=== PATIENT | male | born 1945 | race Caucasian/White ===

== ENCOUNTER 2016-11-11 20:30 | Inpatient (IN) ==
[2016-11-11] MEDS ORDERED: DUONEB (A & A) INH ONE (21:11)
--- NOTE | 2016-11-11 21:28 | PROVIDER DOCUMENTATION ---
HPI-Respiratory General - General Chief Complaint: Shortness of Breath Stated Complaint: SOB Time Seen by Provider: 11/11/16 21:00 Source: patient, family Allergies/Adverse Reactions: Patient Allergies Allergy/AdvReac Type Severity Reaction Status Date / Time Beta-Blockers Allergy Unknown Unknown Verified 11/11/16 21:15 (Beta-Adrenergic Bloc Home Medications: Home Medication List Medication Instructions Recorded Confirmed Last Taken Type PRAVAstatin [Pravachol] 40 mg PO QAM 12/23/13 11/11/16 11/11/16 07:00 History Citalopram [Celexa] 40 mg PO QAM 09/11/14 11/11/16 11/11/16 07:00 History Gabapentin 800 mg PO QAM 09/11/14 11/11/16 11/11/16 07:00 History Albuterol Sulfate Inhaler 4 puff INH Q6H PRN PRN #1 inhaler 03/06/15 11/11/16 19:35 Rx [Ventolin Hfa] Meloxicam 15 mg PO QAM 03/06/15 11/11/16 11/11/16 07:00 History Arformoterol Neb [Brovana Neb] 15 microgm INH RTQ12H 04/04/16 11/11/16 11/11/16 08:00 History Gabapentin 800 mg PO QHS 04/04/16 11/11/16 11/10/16 20:00 History Furosemide [Furosemide] 20 mg PO 11/11/16 11/11/16 08:00 History Metoprolol Tartrate [Metoprolol 50 mg PO DAILY 11/11/16 11/11/16 11/11/16 08:00 History Tartrate] - History of Present Illness-Resp Nature of Presenting Problem: Patient is a pleasant 71 yrs old male with hx of COPD, HTN and smoking has come with worsening of the shortness of chronic shortness of breath . He states that he has been having always shortness of breath going on , which has been now severe in the last couple of days. Particularly since yesterday there is more shortness of breath going on . He is spitting out phlegm . Having some cough going on as well.No chest pain , no N/V, no abd pain , No constipation . Overall feels weak and tired. No numbness in any part of the legs or arms. Quality of Pain: reports: none Severity in ED: reports: moderate Onset/Duration: reports: gradual Timing: reports: still present Exposure: reports: unknown cause Cough Quality/Degree: reports: productive cough, sputum Current Respiratory Medication Therapy: Initiated none Modifying Factors: improves with: nothing Similar Symptoms Previously?: Yes Recently seen or treated by another doctor?: No Review of Systems - Adult - REVIEW OF SYSTEMS - ADULT Constitutional: reports: no symptoms reported Eyes: reports: no symptoms reported Ears, Nose, Mouth & Throat: reports: no symptoms reported Cardiovascular: reports: no symptoms reported Respiratory: reports: see HPI Gastrointestinal: reports: no symptoms reported Genitourinary: reports: no symptoms reported Musculoskeletal: reports: no symptoms reported Integumentary: reports: no symptoms reported Neurological: reports: no symptoms reported Psychiatric: reports: no symptoms reported Endocrine: reports: no symptoms reported Hematologic/Lymphatic: reports: no symptoms reported Allergic/Immunologic: reports: no symptoms reported Past History - Adult - PAST MEDICAL HISTORY-ADULT Review of Records: reports: Old Records Reviewed Major Childhood Illnesses: reports: denies history Cardiovascular: reports: HTN Respiratory: reports: asthma, COPD Gastrointestinal: reports: denies history Genitourinary: reports: denies history Musculoskeletal: reports: denies history Neurological: reports: denies history Endocrine/Immune: reports: denies history Other Conditions: reports: denies history - PRIOR SURGERIES/PROCEDURES Surgical/Procedure History: reports: joint replacement (right knee) - IMMUNIZATION STATUS Childhood Immunizations: See Nurse Assessment Flu Vaccine: See Nurse Assessment - FAMILY HISTORY Family History: reviewed, not pertinent Physical Exam-General - PHYSICAL EXAM-ADULT Initial Vital Signs Reviewed: Yes - CONSTITUTIONAL General Appearance: alert, moderate distress, obese, other (Looks tired) - EYES Eyes: PERRL/EOMI - HEAD, EARS, NOSE, MOUTH & THROAT HENMT: normocephalic/atraumatic - NECK Neck: non-tender - RESPIRATORY Respiratory: chest non-tender, decreased breath sounds, wheezing - CARDIOVASCULAR Cardiovascular: regular rate, rhythm, no edema, no gallop - GASTROINTESTINAL (ABDOMEN) Abdominal Exam: non tender, soft, no organomegaly, no pulsatile mass - LYMPHATIC Lymphatic: no adenopathy - MUSCULOSKELETAL Extremity: normal range of motion, no pedal edema, no calf tenderness - SKIN Integumentary: normal color, normal turgor - NEUROLOGIC Neurologic: vp public relations II-XII nml as tested, no motor/sensory deficits - PSYCHIATRIC Psych/Mental Status: normal mood/affect, normal thought content, oriented x 3 Progress - PLAN OF CARE/RESULTS Progress/Plan/Lab Results: Vital Signs - 8 hr 11/11/16 20:49 11/11/16 21:55 11/11/16 23:37 Temperature 98.2 F Pulse Rate 75 75 73 Respiratory Rate 24 18 20 Blood Pressure 149/69 151/79 O2 Sat by Pulse Oximetry 97 99 Laboratory Results - last 24 hr 11/11/16 11/11/16 11/11/16 21:08 21:08 21:08 WBC 10.18 RBC 4.58 L Hgb 14.4 Hct 42.8 MCV 93.4 MCH 31.4 H MCHC 33.6 RDW Std Deviation 13.9 Plt Count 265 MPV 10.9 H Immature Gran % (Auto) 0.2 Neut % (Auto) 59.4 Lymph % (Auto) 26.6 [place] % (Auto) 9.9 H Eos % (Auto) 3.7 Baso % (Auto) 0.2 Immature Gran # (Auto) 0.02 Neut # (Auto) 6.04 Lymph # (Auto) 2.71 [place] # (Auto) 1.01 H Eos # (Auto) 0.38 Baso # (Auto) 0.02 PT INR PTT (Actin FS) D-Dimer 0.27 Sodium 143 Potassium 4.6 Chloride 101 Carbon Dioxide 28 Anion Gap 14 BUN 22 Creatinine 1.2 Estimated GFR/1.73 m2 60 BUN/Creatinine Ratio 18 Glucose 87 Calculated Osmolality 288 Calcium 8.7 L Magnesium 2.1 Total Bilirubin 0.23 AST 14 ALT 12 Alkaline Phosphatase 70 Creatine Kinase 48 Troponin T Fjk-B-Xapkaipbfaf Pept Total Protein 6.3 Albumin 3.7 Globulin 2.6 Albumin/Globulin Ratio 1.4 11/11/16 11/11/16 11/11/16 21:08 21:08 21:08 WBC RBC Hgb Hct MCV MCH MCHC RDW Std Deviation Plt Count MPV Immature Gran % (Auto) Neut % (Auto) Lymph % (Auto) [place] % (Auto) Eos % (Auto) Baso % (Auto) Immature Gran # (Auto) Neut # (Auto) Lymph # (Auto) [place] # (Auto) Eos # (Auto) Baso # (Auto) PT 10.2 INR 0.97 PTT (Actin FS) 29.0 D-Dimer Sodium Potassium Chloride Carbon Dioxide Anion Gap BUN Creatinine Estimated GFR/1.73 m2 BUN/Creatinine Ratio Glucose Calculated Osmolality Calcium Magnesium Total Bilirubin AST ALT Alkaline Phosphatase Creatine Kinase Troponin T < 0.010 Xgs-P-Vhlardewxmr Pept 94 Total Protein Albumin Globulin Albumin/Globulin Ratio Orders Category Date Time Status Cardiac Monitoring DIRECTED Care 11/11/16 20:40 Active Oxygen Therapy- ED Nursing DIRECTED Care 11/11/16 20:40 Active Saline Loc NOW Care 11/11/16 20:40 Active CHEST-2 VIEWS [RAD] Stat Exams 11/11/16 20:40 Completed CBC WITH ELECTRONIC DIFF [HEME] Stat Lab 11/11/16 21:08 Completed CK PROFILE [SP CHEM] Stat Lab 11/11/16 21:08 Completed COMPREHENSIVE METABOLIC PANEL [CHEM] Stat Lab 11/11/16 21:08 Completed D-DIMER [CHEM] Stat Lab 11/11/16 21:08 Completed MAGNESIUM [CHEM] Stat Lab 11/11/16 21:08 Completed PRO B-NATRIURETIC PEPTIDE Stat Lab 11/11/16 21:08 Completed PROTIME WITH INR [COAG] Stat Lab 11/11/16 21:08 Completed PTT [COAG] Stat Lab 11/11/16 21:08 Completed TROPONIN T Stat Lab 11/11/16 21:08 Completed Albuterol 2.5MG/Ipratrop 0.5MG [Duoneb (A & A)] Med 11/11/16 21:11 Discontinued 3 ml INH NOW ONE Fluticasone Propionate 220 INH [Flovent 220 Microgm Hfa Med 11/11/16 23:15 Discontinued ] 1 puff INH NOW ONE Levofloxacin 500 mg/D5w [Levaquin 500 mg/D5w] Med 11/11/16 23:16 Active 500 mg in 100 ml IV NOW Methylprednisolone Sod Succ [Solu-Medrol] Med 11/11/16 23:45 Active 60 mg IV Q8H Aerosol Treatments Routine Oth 11/11/16 21:11 Completed Aerosol Treatments Stat Oth 11/11/16 21:11 Completed MDI Treatments Stat Oth 11/11/16 23:15 Active EKG [EKG] Stat Ther 11/11/16 20:40 Ordered Result Diagrams: 11/11/16 21:08 11/11/16 21:08 Departure - Departure Date of Disposition Decision: 11/12/16 Time of Disposition Decision: 00:05 DIAGNOSIS: COPD exacerbation Disposition: ADMITTED INPATIENT 09 Certified Medical Emergency: Emergent Condition: Fair Referrals and Follow-Ups: Rodolfo Mckenna MD [Primary Care Provider] - - Critical Care Note This patient required my direct & personal management of CC.: Yes Attestation - Physician/ ZEYAD Attestation Patient care was provided by Advanced Practice Provider:: No The physician spent face to face time with patient:: Yes Advanced Practice Provider documentation review:: Supervising physician onsite and consulted in the evaluation and care of this patient. The physician did have a face to face encounter with the patient.
[2016-11-11 21:32] LABS: MANUAL DIFF NEEDED? NO
[2016-11-11 21:36] LABS: BASO% 0.2 % (0.0-0.8); EOS# 0.38 X1000 (0.0-0.7); EOS% 3.7 % (0.0-10.0); HEMATOCRIT 42.8 % (42.0-52.0); HEMOGLOBIN 14.4 g/dL (14.0-18.0); IMM GRAN# 0.02 X1000 (0.0-0.04); IMM GRAN% 0.2 % (0.0-0.5); LYMPH# 2.71 X1000 (1.2-3.4); LYMPH% 26.6 % (20.5-51.1); MCH 31.4 PG (27-31); MCHC 33.6 g/dL (33-37); MCV 93.4 FL (81-99); MONO# 1.01 X1000 (0.11-0.59); MONO% 9.9 % (1.7-9.3); MPV 10.9 FL (7.4-10.4); NEUT% 59.4 % (42.2-75.2); PLT 265 X1000 (130-400); RBC 4.58 XMIL (4.7-6.1)
--- NOTE | 2016-11-11 21:37 | Diag Imaging Result Doc PS360 ---
EXAM: CHEST-2 VIEWS INDICATION: CP TECHNIQUE: 3 views COMPARISON: 04/07/2016 FINDINGS: There is evidence of prior granulomatous disease, stable. The lungs are grossly clear, otherwise. There is no discrete pleural fluid collection or pneumothorax. The cardiomediastinal silhouette and central vasculature are grossly unremarkable. IMPRESSION: No evidence of acute pathology by plain radiograph. Electronically signed by Rodolfo Juarez 11/11/2016 9:34 PM
[2016-11-11 21:45] LABS: INR 0.97; PROTIME 10.2 Seconds (9.2-11.7)
[2016-11-11 21:50] LABS: ALBUMIN 3.7 g/dL (3.5-5.0); CALCIUM 8.7 mg/dL (8.8-10.2); MAGNESIUM 2.1 mg/dL (1.5-2.7); POTASSIUM 4.6 mmol/L (3.5-5.1); TOTAL BILIRUBIN 0.23 mg/dL (0.20-1.00); TOTAL PROTEIN 6.3 g/dL (6.3-8.3)
[2016-11-11] MEDS ORDERED: FLOVENT 220 MICROGM HFA INH ONE (23:15)
[2016-11-11] MEDS ORDERED: NS IV SCH (23:15)
[2016-11-11] MEDS ORDERED: SOLU MEDROL IV SCH (23:15)
[2016-11-11] MEDS ORDERED: LEVAQUIN 500 MG/D5W 500 MG/100 ML IVPB IV ONE (23:16)
[2016-11-11] MEDS ORDERED: SOLU-MEDROL IV SCH (23:45)
--- NOTE | 2016-11-12 03:28 | HISTORY AND PHYSICAL ---
CHIEF COMPLAINT: Shortness of breath x1 week. HISTORY OF PRESENTING ILLNESS: A 71-year-old obese male with a history of COPD on home oxygen at night, hypertension, hyperlipidemia, presented to the emergency department with 1-week history of having worsening shortness of breath. The patient states he could not tolerate the symptoms. He has felt like he was getting smothered and subsequently had come to emergency department. In the ER, he was evaluated, given DuoNebs and he had some improvement. Due to his presenting symptoms, he will need hospitalization for further management. At the time of my examination, he had denied any headache, fever, chills, chest pain, hemoptysis, melena, weight changes, but complained of shortness of breath. PRIMARY CARE PHYSICIAN: PAST MEDICAL HISTORY: Includes COPD on home oxygen, hypertension, hyperlipidemia. PAST SURGICAL HISTORY: Right knee surgery. ALLERGIES: No known drug allergies. CURRENT MEDICATIONS: Listed on medication reconciliation sheet. SOCIAL HISTORY: Sixty pack years of smoking. Denies any history of alcohol or illicit drug use. FAMILY HISTORY: Positive for coronary disease in mother and father. REVIEW OF SYSTEMS: [employer] point systems is as in HPI. Other systems negative. PHYSICAL EXAMINATION: GENERAL: Cooperative, friendly, obese male. He is in some mild respiratory distress. VITAL SIGNS: Temperature 98.2 degrees, pulse 75, respirations 24, blood pressure 149/69. He is saturating 88%. HEENT: Atraumatic, normocephalic. Extraocular movements intact. PERRLA. NECK: No masses. CHEST: Rhonchi. CARDIOVASCULAR: Regular rhythm. ABDOMEN: Soft, obese, positive bowel sounds. EXTREMITIES: No edema. NEUROLOGIC: He is awake, alert, oriented x3. GENITOURINARY: No bladder distention. SKIN: Warm. LABORATORIES AND STUDIES: WBC 10.18, hemoglobin 14.4, hematocrit 42.8, platelets 265,000. Sodium 143, potassium 4.6, chloride 101, CO2 is 28, BUN is 22, creatinine is 1.2, glucose is 87. ASSESSMENT: A 71-year-old obese male with a history of chronic obstructive pulmonary disease on home oxygen who presented to the emergency department with a 1-week history of worsening shortness of breath. He is found to be in chronic obstructive pulmonary disease exacerbation. He will need hospitalization for further management acute. 1. Acute chronic obstructive pulmonary disease exacerbation. 2. Hypertension. 3. Hyperlipidemia. 4. Ongoing tobacco abuse. PLAN: 1. We will admit patient to medical floor with telemetry. 2. DuoNebs, IV Solu-Medrol and IV antibiotics. 3. Monitor blood pressure. Resume antihypertensive agents. 4. We will resume his home medications including statin. 5. Put patient on DVT prophylaxis with SCD. 6. I counseled patient extensively on smoking cessation. 7. We will continue to follow and reassess. cc: Klaus Clay MD
[2016-11-12] MEDS: DUONEB (A & A) INH PRN ×3 (04:50→16:03)
[2016-11-12] MEDS ORDERED: LOPRESSOR PO SCH (09:00)
[2016-11-12] MEDS ORDERED: LASIX PO SCH (09:00)
[2016-11-12] MEDS ORDERED: CELEXA PO SCH (09:00)
[2016-11-12] MEDS ORDERED: PRAVACHOL PO SCH (09:00)
[2016-11-12] MEDS ORDERED: MOBIC PO SCH (09:00)
[2016-11-12] MEDS ORDERED: NEURONTIN PO SCH ×2 (09:00→21:00)
[2016-11-12] MEDS: SOLU-MEDROL IV SCH ×2 (10:39→17:16)
[2016-11-12 15:25] VITALS: BP 151/74
[2016-11-12] MEDS ORDERED: LEVAQUIN 500 MG/D5W 500 MG/100 ML IVPB IV SCH (23:00)
--- NOTE | 2016-11-13 08:54 | EKG Report ---
Test Performed on : 11/11/2016 8:46:05 PM Test Reason : SOB Blood Pressure : / mmHG Vent. Rate : 079 BPM Atrial Rate : 079 BPM P-R Int : 124 ms QRS Dur : 080 ms QT Int : 376 ms P-R-T Axes : 039 027 030 degrees QTc Int : 431 ms Normal sinus rhythm. Normal ECG When compared with ECG of 07-APR-2016 06:20, No significant change was found Unconfirmed Result
--- NOTE | 2016-11-18 09:36 | DISCHARGE SUMMARY ---
ADMISSION DATE: 11/12/2016 DISCHARGE DATE: 11/12/2016 DISCHARGE DIAGNOSES.: 1. Chronic obstructive pulmonary disease exacerbation with possible bronchitis. 2. Hypertension. 3. Hyperlipidemia. 4. Ongoing tobacco abuse. HOSPITAL COURSE: A 71-year-old obese male with a past medical history of COPD, on home oxygen at night, hypertension, and hyperlipidemia presented to the emergency department with a 1-week history of having worsening shortness of breath. He was admitted on 11/12/2016. He received treatment in the emergency department and also apparently steroids. Also, he states that he has been having some kind of phlegm, white to yellowish, but he denies fever or chills. The next day, all the symptoms improved and he was breathing just fine even without oxygen, so I decided to discharge this patient home with antibiotics, levofloxacin, and I will continue the rest of his medications. Upon discharge, the patient was in a stable medical condition, tolerating p.o., ambulating without oxygen. PHYSICAL EXAMINATION: Vital signs: Temperature in 98.6, pulse 69, respiratory rate 20, blood pressure 151/74, oxygen saturation 94% on 2 L of nasal cannula. HEENT: Head normocephalic. No trauma. PERRLA. Neck: Supple. No JVD, no masses, central trachea. Chest: Clear to auscultation. No wheezing. No rales. Extremities: No edema. No clubbing. No cyanosis. Neurological: The patient is alert and oriented x3. No deficits. Cardiovascular: RRR. No murmurs. LABORATORY: WBC 10, hemoglobin 14.4, hematocrit 42.8, platelets 265,000. Sodium 143, potassium 4.6, chloride 101, bicarbonate 28, BUN 22, creatinine 1.2, glucose 87, calcium 8.7. DISCHARGE MEDICATION: 1. Levofloxacin 750 mg p.o. daily for 10 days. 2. Pravastatin 40 mg p.o. daily. 3. Gabapentin 800 mg p.o. daily. 4. Citalopram 40 mg p.o. daily. 5. Ventolin HFA 4 puffs inhalation every 6 hours as needed. 6. Brovana 15 mcg inhalation every 12 hours. 7. Furosemide 20 mg p.o. daily. 8. Metoprolol tartrate 50 mg p.o. daily. FOLLOWUP: Followup by his primary care doctor in a week. DISCHARGE TIME: Time discharging this patient 35 minutes. cc: Anjel Jose MD
== END 2016-11-12 18:53 | disposition home or self-care (01) ==
LOC: ED 20:30 → SUATTDRO 11-12 01:01 → 4N 11-12 01:01
PROVIDERS: ATTEND Internal Medicine

== ENCOUNTER 2019-03-04 01:31 | Inpatient (IN) ==
[2019-03-04] MEDS ORDERED: ASPIRIN PR ONE (01:46)
[2019-03-04] MEDS ORDERED: ASPIRIN PO ONE (01:46)
[2019-03-04] MEDS ORDERED: ASPIRIN ONE (01:49)
[2019-03-04 02:12] LABS: INR 0.94; PROTIME 12.7 Seconds (11.0-16.0)
[2019-03-04 02:13] LABS: PTT 30.7 Seconds (22.3-41.8)
--- NOTE | 2019-03-04 02:32 | EKG Report ---
Test Performed on : 03/04/2019 01:38:01 AM Test Reason : chest pain Blood Pressure : / mmHG Vent. Rate : 090 BPM Atrial Rate : 090 BPM P-R Int : 122 ms QRS Dur : 096 ms QT Int : 362 ms P-R-T Axes : 063 000 038 degrees QTc Int : 442 ms Sinus rhythm. with premature atrial complexes. with aberrant conduction. Otherwise normal ECG When compared with ECG of 03-JAN-2019 12:36, (Unconfirmed) aberrant conduction. is now present Unconfirmed Result
[2019-03-04 02:35] LABS: AGAP 13; ALB/GLOB RATIO 2.3; ALBUMIN 4.1 g/dL (3.5-5.0); ALKALINE PHOSPHATASE 90 U/L (32-122); BUN 24 mg/dL (8-22); CALCIUM 8.9 mg/dL (8.8-10.2); CHLORIDE 104 mmol/L (98-107); CK PROFILE 45 U/L (24-204); COSMO 293; CREATININE 1.5 mg/dL (0.7-1.2); ESTIMATED GFR 46; GLUCOSE 104 mg/dL (70-104); GOT 18 U/L (10-34); GPT 20 U/L (10-44); POTASSIUM 4.5 mmol/L (3.5-5.1); SODIUM 145 mmol/L (136-145); TCO2 28 mmol/L (25-35); TOTAL BILIRUBIN < 0.15 mg/dL (0.20-1.00); TOTAL PROTEIN 5.9 g/dL (6.3-8.3)
[2019-03-04] MEDS ORDERED: SOLU-MEDROL IV ONE (02:38)
[2019-03-04] MEDS ORDERED: ALBUTEROL NEB INH ONE (02:38)
[2019-03-04] MEDS ORDERED: PULMICORT INH ONE (02:38)
[2019-03-04] MEDS ORDERED: DUONEB (A & A) INH ONE (02:38)
[2019-03-04 02:40] LABS: BASO# 0.04 X1000 (0.0-0.2); BASO% 0.4 % (0.0-0.8); EOS# 0.24 X1000 (0.0-0.7); EOS% 2.4 % (0.0-10.0); HEMATOCRIT 40.1 % (42.0-52.0); HEMOGLOBIN 12.8 g/dL (14.0-18.0); IMM GRAN# 0.03 X1000 (0.0-0.04); IMM GRAN% 0.3 % (0.0-0.5); MCH 30.8 PG (27-31); MCHC 31.9 g/dL (33-37); MCV 96.4 FL (81-99); MONO# 0.93 X1000 (0.11-0.59); MONO% 9.3 % (1.7-9.3); MPV 10.9 FL (7.4-10.4); NEUT# 5.96 X1000 (1.4-6.5); NEUT% 59.6 % (42.2-75.2); PLT 316 X1000 (130-400); RBC 4.16 XMIL (4.7-6.1); RDW 13.4 % (11.5-14.5)
--- NOTE | 2019-03-04 02:45 | PROVIDER DOCUMENTATION ---
HPI-Chest Pain - General Chief Complaint: Chest Pain Stated Complaint: CHEST PAIN/COPD Time Seen by Provider: 03/04/19 02:00 Source: patient, family Allergies/Adverse Reactions: Patient Allergies Allergy/AdvReac Type Severity Reaction Status Date / Time No Known Allergies Allergy Verified 03/04/19 02:26 Home Medications: Home Medication List Medication Instructions Recorded Confirmed Last Taken Type PRAVAstatin [Pravachol] 40 mg PO DAILY 12/23/13 03/04/19 01/02/19 History 40 MG Citalopram [Celexa] 40 mg PO QAM 09/11/14 03/04/19 01/02/19 History 40 MG Albuterol Sulfate Inhaler 4 puff INH Q6H PRN PRN #1 inhaler 03/06/15 03/04/19 01/02/19 Rx [Ventolin Hfa] 4 PUFF Prednisone 5 mg PO DAILY 12/22/17 03/04/19 01/02/19 History 5 MG Furosemide [Lasix] 2 tab PO DAILY 10/17/18 03/04/19 01/02/19 History 40 MG Fluticasone/Umeclidin/Vilanter 1 puff INH DAILY 03/04/19 03/04/19 Unknown History [Gianakacey Rosaliota 100-62.5-25] - History of Present Illness-CP Nature of Presenting Problem: Has had SOB, increasing GUERRERO for a month, has seen PCP 3x for it, and was seen in ED here once. However, tonic=ght, says has had a sharp, burning pressure substernal CP for 2-3 days. Pain waxes and wanes. Does not radiate, nothing makes it better nor worse. No fever. No N/V.. He has syncope when he walks, but is a chronic problem, has seen neurologist, was dx with vaso-vagal syncope. Says both lungs have been urting for months. Quit smoking 2 years ago. says he is retaining fluid everywhere Location: reports: substernal Chest Pain Radiation: reports: no radiation Timing: still present Aspirin Treatment Today: provided by ED Similar Symptoms Previously?: Yes Recently Seen Here or By Another Healthcare Provider: Yes Review of Systems - Adult - REVIEW OF SYSTEMS - ADULT Constitutional: reports: no symptoms reported Eyes: reports: no symptoms reported Ears, Nose, Mouth & Throat: reports: no symptoms reported Cardiovascular: reports: see HPI Respiratory: reports: see HPI Gastrointestinal: reports: no symptoms reported Genitourinary: reports: no symptoms reported Musculoskeletal: reports: no symptoms reported Integumentary: reports: no symptoms reported Neurological: reports: see HPI Psychiatric: reports: no symptoms reported Endocrine: reports: no symptoms reported Hematologic/Lymphatic: reports: no symptoms reported Allergic/Immunologic: reports: no symptoms reported Past History - Adult - PAST MEDICAL HISTORY-ADULT Review of Records: reports: Medications Reviewed Major Childhood Illnesses: reports: denies history Cardiovascular: reports: HTN, hyperlipidemia Respiratory: reports: asthma, COPD, sleep apnea Gastrointestinal: reports: denies history Obstetrical/Gynecological: reports: denies history Genitourinary: reports: denies history, kidney disease Musculoskeletal: reports: denies history, other (neuropathy) Neurological: reports: denies history Psychiatric: reports: denies history Endocrine/Immune: reports: denies history Other Conditions: reports: denies history, cataract/glaucoma - PRIOR SURGERIES/PROCEDURES Surgical/Procedure History: reports: joint replacement (right knee), other (cataract removal, oral sx) - IMMUNIZATION STATUS Childhood Immunizations: See Nurse Assessment Flu Vaccine: See Nurse Assessment - FAMILY HISTORY Family History: reviewed, not pertinent Physical Exam-General - PHYSICAL EXAM-ADULT Initial Vital Signs Reviewed: Yes - CONSTITUTIONAL General Appearance: alert, mild distress - EYES Eyes: PERRL/EOMI, pink conjunctivae - HEAD, EARS, NOSE, MOUTH & THROAT HENMT: normocephalic/atraumatic, moist mucous membranes, normal ENT inspection, pharynx normal - NECK Neck: full range of motion, supple - RESPIRATORY Respiratory: decreased breath sounds (sl expir wheeze) - CARDIOVASCULAR Cardiovascular: normal peripheral pulses, regular rate, rhythm, no murmur - GASTROINTESTINAL (ABDOMEN) Abdominal Exam: non tender, soft - MUSCULOSKELETAL Back Exam: normal inspection, no CVA tenderness, no vertebral tenderness Extremity: normal range of motion, non-tender, pedal edema (1-2 + pretibial) - SKIN Integumentary: normal color, normal turgor, warm/dry - 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, grossly normal, no motor/sensory deficits - PSYCHIATRIC Psych/Mental Status: normal mood/affect, normal thought content, normal thought process, oriented x 3 - HEART Score HEART Score: History: Slightly Suspicious HEART Score: ECG: Normal HEART Score: Age: > or = 65 Years HEART Score: Risk Factors for Atherosclerotic Disease: > or = 3 Risk Factors or History of Atherosclerotic Disease HEART Score: Troponin: < or = Normal Limit Total HEART Score:: 4 Progress - PLAN OF CARE/RESULTS Progress/Plan/Lab Results: Vital Signs - 8 hr 03/04/19 01:40 03/04/19 02:40 Temperature 98.1 F Pulse Rate 95 H 80 Respiratory Rate 19 20 Blood Pressure 127/73 O2 Sat by Pulse Oximetry 95 99 Laboratory Results - last 24 hr 03/04/19 03/04/19 03/04/19 01:50 01:50 01:50 WBC 10.00 RBC 4.16 L Hgb 12.8 L Hct 40.1 L MCV 96.4 MCH 30.8 MCHC 31.9 L RDW Std Deviation 13.4 Plt Count 316 MPV 10.9 H Immature Gran % (Auto) 0.3 Neut % (Auto) 59.6 Lymph % (Auto) 28.0 [place] % (Auto) 9.3 Eos % (Auto) 2.4 Baso % (Auto) 0.4 Immature Gran # (Auto) 0.03 Neut # (Auto) 5.96 Lymph # (Auto) 2.80 [place] # (Auto) 0.93 H Eos # (Auto) 0.24 Baso # (Auto) 0.04 PT INR PTT (Actin FS) Sodium 145 Potassium 4.5 Chloride 104 Carbon Dioxide 28 Anion Gap 13 BUN 24 H Creatinine 1.5 H Estimated GFR/1.73 m2 46 BUN/Creatinine Ratio 16 Glucose 104 Calculated Osmolality 293 Calcium 8.9 Total Bilirubin < 0.15 L AST 18 ALT 20 Alkaline Phosphatase 90 Creatine Kinase 45 Troponin T [id number] Pept 33 Total Protein 5.9 L Albumin 4.1 Globulin 1.8 Albumin/Globulin Ratio 2.3 03/04/19 03/04/19 01:50 01:50 WBC RBC Hgb Hct MCV MCH MCHC RDW Std Deviation Plt Count MPV Immature Gran % (Auto) Neut % (Auto) Lymph % (Auto) [place] % (Auto) Eos % (Auto) Baso % (Auto) Immature Gran # (Auto) Neut # (Auto) Lymph # (Auto) [place] # (Auto) Eos # (Auto) Baso # (Auto) PT 12.7 INR 0.94 PTT (Actin FS) 30.7 Sodium Potassium Chloride Carbon Dioxide Anion Gap BUN Creatinine Estimated GFR/1.73 m2 BUN/Creatinine Ratio Glucose Calculated Osmolality Calcium Total Bilirubin AST ALT Alkaline Phosphatase Creatine Kinase Troponin T < 0.010 [id number] Pept Total Protein Albumin Globulin Albumin/Globulin Ratio Orders Category Date Time Status Cardiac Monitoring DIRECTED Care 03/04/19 01:46 Active Oxygen Therapy- ED Nursing DIRECTED Care 03/04/19 01:46 Active Saline Loc NOW Care 03/04/19 01:46 Active CHEST-2 VIEWS [RAD] Stat Exams 03/04/19 01:46 Taken CBC WITH ELECTRONIC DIFF [HEME] Stat Lab 03/04/19 01:50 Completed CK PROFILE [SP CHEM] Stat Lab 03/04/19 01:50 Completed COMPREHENSIVE METABOLIC PANEL [CHEM] Stat Lab 03/04/19 01:50 Completed PRO B-NATRIURETIC PEPTIDE Stat Lab 03/04/19 01:50 Completed PROTIME WITH INR [COAG] Stat Lab 03/04/19 01:50 Completed PTT [COAG] Stat Lab 03/04/19 01:50 Completed TROPONIN T Stat Lab 03/04/19 01:50 Completed 0.9% Sodium Chloride Inj [Ns] 500 ml Med 03/04/19 03:43 Discontinued IV 999 mls/hr Albuterol 2.5MG/Ipratrop 0.5MG [Duoneb (A & A)] Med 03/04/19 02:38 Discontinued 3 ml INH NOW ONE Albuterol [Albuterol Neb] Med 03/04/19 02:38 Discontinued 5 mg INH NOW ONE Aspirin Med 03/04/19 01:46 Discontinued 300 mg GA NOW ONE Aspirin Med 03/04/19 01:49 Discontinued 325 mg .ROUTE .STK-MED ONE Aspirin Med 03/04/19 01:46 Discontinued 325 mg PO NOW ONE Budesonide [Pulmicort] Med 03/04/19 02:38 Discontinued 0.5 mg INH NOW ONE Methylprednisolone Sod Succ [Solu-Medrol] Med 03/04/19 02:38 Discontinued 125 mg IV NOW ONE Morphine Med 03/04/19 03:46 Discontinued 2 mg IV NOW ONE Aerosol Treatments Routine Oth 03/04/19 02:39 Completed Aerosol Treatments Stat Oth 03/04/19 02:39 Completed CP/SOB/Palp >45 yrs of Age Stat Oth 03/04/19 01:46 Ordered EKG [EKG] Stat Ther 03/04/19 01:46 Draft Old chart reviewed, was last seen here on 01/03/19, was found to have subacute rib fx, dx with COPD exacerbation, declined admission Result Diagrams: 03/04/19 01:50 03/04/19 01:50 - EKG 1 Time of EKG reading by physician:: 01:41 EKG Read and Signed by:: King Lloyd EKG Interpretation (*Must complete 3 of following elements*): Abnormal Rate: 90 Rhythm: sinus with PAC [place]: normal QRS: normal - CONSULTS/PCP/HOSPITALIST Notification #1 *Consult/PCP/Hospitalist*: [place] Time Discussed: 05:20 Consult Disposition: Will see in ED, Admit Departure - Departure Date of Disposition Decision: 03/04/19 Time of Disposition Decision: 04:30 DIAGNOSIS: COPD exacerbation, Acute kidney injury Disposition: ADMITTED INPATIENT 09 Certified Medical Emergency: Emergent Condition: Good Referrals and Follow-Ups: Rodolfo Mckenna MD [Primary Care Provider] - - Critical Care Note This patient required my direct & personal management of CC.: No Attestation - Physician/ ZEYAD Attestation Patient care was provided by Advanced Practice Provider:: No The physician spent face to face time with patient:: Yes Advanced Practice Provider documentation review:: Supervising physician onsite and consulted in the evaluation and care of this patient. The physician did have a face to face encounter with the patient.
[2019-03-04] MEDS ORDERED: NS 500 ML IV ONE (03:43)
[2019-03-04] MEDS ORDERED: MORPHINE IV ONE (03:46)
[2019-03-04] MEDS ORDERED: VENTOLIN HFA INH PRN (05:48)
--- NOTE | 2019-03-04 06:43 | HISTORY AND PHYSICAL ---
CHIEF COMPLAINT: Chest pain. HISTORY OF PRESENT ILLNESS: This is a 73-year-old male with a history of COPD. He is on 3.5 liters home O2. He has hyperlipidemia and vasovagal syndrome as well. He states that his lungs have been hurting for around 2 months but the reason that he came in was related to substernal chest pain. It did not radiate. He did not have nausea, vomiting, or diaphoresis. He did not have an increased shortness of breath related to the episode. Apparently he has seen his PCP 3 times in the last month related to his lung pain; however, in the last 2 days and especially tonight, he had a very tight substernal sharp burning chest pain. Nothing made it better, nothing made it worse. He has also been retaining fluid for a couple of months. He does take 80 mg of Lasix daily. Has not had an echocardiogram recently. He will be admitted for further evaluation and treatment. PAST MEDICAL HISTORY: See HPI. PREVIOUS SURGICAL HISTORY: 1. Right knee arthroplasty. 2. Cataract surgery. SOCIAL HISTORY: Former smoker. Quit 2 years ago. Lives with his . No alcohol. No illicit drugs. FAMILY HISTORY: Denies a history of coronary artery disease. ALLERGIES: No known drug allergies. HOME MEDICATIONS: 1. Ventolin HFA 4 puff inhalation q.6. 2. Celexa 40 mg p.o. daily. 3. Trelegy Ellipta 100/62.5/25 one puff inhalation daily. 4. Lasix 80 mg daily. 5. Pravachol 40 mg daily. 6. Prednisone 5 mg p.o. daily. REVIEW OF SYSTEMS: Fourteen point review of systems conducted with the patient. Pertinent positives listed above in the HPI. All other systems reviewed and found to be negative. PHYSICAL EXAMINATION: VITAL SIGNS: Temperature 98.1 degrees, pulse 87, respirations 16, blood pressure 120/70, oxygen saturation 98% on 3.5 liters nasal cannula which is his home O2. GENERAL: Morbidly obese 73-year-old male chronically ill-appearing lying in the ER stretcher. He is in no acute distress. HEENT: Head is atraumatic, normocephalic. Pupils equal, round and reactive to light. Extraocular eye movements are intact. Sclerae anicteric. Conjunctivae pink. Oral mucosa is moist. NECK: Supple. No JVD. No thyromegaly. Trachea is midline. No cervical lymphadenopathy. CARDIAC: S1, S2 appreciated. No murmurs, gallops, rubs. LUNGS: Clear to auscultation bilaterally. No rhonchi, wheezes rales. Symmetric rise and fall of respirations. ABDOMEN: Protuberant. Edema noted to abdominal wall. Bowel sounds present all 4 quadrants. Normoactive. No pulsatile mass or organomegaly. EXTREMITIES: 2-3+ pitting edema bilateral lower extremities. 2+ pedal pulses bilaterally. GENITOURINARY: No bladder distention. The patient voids. Otherwise deferred. NEUROLOGICAL: Alert and oriented x3. Cranial nerves 2-12 grossly intact. DIAGNOSTIC DATA: CT of his thorax is pending. Chest x-ray: Chronic COPD changes. LABORATORY DATA: WBC 10, hemoglobin 12.8, hematocrit 40.1, platelet count 316,000. Sodium 145, potassium 4.5, chloride 104, carbon dioxide 28, BUN 24, creatinine 1.5, glucose 104. ASSESSMENT AND PLAN: 1. Chest pain, rule out acute myocardial infarction. 2. COPD with mild exacerbation. 3. Hyperlipidemia. 4. Vasovagal syndrome. 5. Chronic renal insufficiency. PLAN: Place patient on the medical floor. Check echocardiogram. He takes Lasix 80 mg daily. We will give IV Lasix 60 mg q.12 hours today and then continue his home Lasix. Morphine as needed for pain. Trend cardiac enzymes. He received methylprednisone in the emergency room. We will hold off giving further doses. He takes orally daily. Continue his home inhalers, DuoNeb q.6 hours. The chest pain appears pleuritic in nature; however, we will rule out cardiac. Further recommendations per patient's clinical course. Dictated by YULISSA Anders for Stella Martinez MD cc: YULISSA Anders MD Independent exam and assessment done at bedside with FUR SEWER. Above plan of care discussed with FUR SEWER and patient. KELTON
--- NOTE | 2019-03-04 07:16 | Diag Imaging Result Doc PS360 ---
EXAM: CHEST-2 VIEWS 03/04/2019 HISTORY: chest pain TECHNIQUE: PA and lateral chest COMMENT: There is a calcified granuloma in the left costophrenic angle and another in the right upper lobe. There are calcified nodes in the right hilum. There may be COPD. There is diminished atelectasis in the lingula compared to 01/03/2019. Otherwise are has been no significant change in the appearance of the chest. IMPRESSION: Improved lingular atelectasis versus pneumonia. Electronically signed by Luis A Dumas 03/04/2019 7:13 AM
[2019-03-04] MEDS: LASIX IV SCH ×2 (07:17→17:11)
--- NOTE | 2019-03-04 08:11 | Diag Imaging Result Doc PS360 ---
EXAM: CT THORAX W/O CONTRAST INDICATION: plural CP TECHNIQUE: This exam was performed using automated exposure control, adjustment of mA or kV according to patient size, and/or use of iterative reconstruction technique. COMPARISON: 01/03/2019 FINDINGS: There is chronic subsegmental atelectasis versus scarring involving the lingula and right middle lobe that is stable. There is minimal subsegmental atelectasis at the posterior lung bases. There are a few stable calcified granulomata bilaterally. The lungs are clear, otherwise. There is no pleural fluid collection and no pneumothorax. There is aortic and coronary artery atherosclerotic calcification. There is no evidence of significant cardiomegaly. There are calcified mediastinal and hilar lymph nodes indicating prior granulomatous disease. There is no evidence of significant mediastinal or hilar lymphadenopathy. There are a few healed rib fractures bilaterally. There is a new compression deformity at T10 and there is worsening height loss at the T11 vertebral body indicating acute or subacute compression fractures. There is no significant bony retropulsion. IMPRESSION: 1.Stable chronic atelectasis and/or scarring at the lower lung zones bilaterally as described. No definite acute intrathoracic process, otherwise. 2.Acute or subacute compression fractures involving the T11 and T10 vertebral bodies. Electronically signed by Rodolfo Juarez 03/04/2019 8:08 AM
[2019-03-04] MEDS ORDERED: ZOFRAN IV PRN (08:44)
[2019-03-04] MEDS: PRAVACHOL PO SCH (09:05)
[2019-03-04] MEDS: PREDNISONE PO SCH (09:05)
[2019-03-04] MEDS: CELEXA PO SCH (09:05)
[2019-03-04] MEDS: MORPHINE IV PRN ×3 (09:06→20:54)
[2019-03-04] MEDS: LOVENOX SUBQ SCH (09:06)
[2019-03-04] MEDS: PRILOSEC PO SCH (10:43)
[2019-03-04] MEDS: DUONEB (A & A) INH SCH ×3 (10:56→23:01)
[2019-03-04] MEDS: NON-FORMULARY MED (Fluticasone/Umeclidin/Vilanter [Trelegy Ellipta 100-62.5-25] 1 PUFF) INH SCH ×2 (10:57→15:35)
[2019-03-04] MEDS ORDERED: NORCO-5 PO PRN (16:58)
--- NOTE | 2019-03-04 18:13 | ECHO REPORT ---
ORDER DATE: 03/04/2019 REQUESTING PHYSICIAN: ER and hospitalist. INDICATION: CHF. SUMMARY OF 2-DIMENSIONAL IMAGIN. The study is very difficult. M-mode measurements cannot really be obtained. I do not see the constantino enough to measure anything from the parasternal views. 2. Left ventricular function is probably normal. The ejection fraction is grossly estimated at 65%. No definite wall motion abnormality noted. 3. The right ventricle is suboptimally visualized. The chamber is not dilated. 4. The atria appear to be normal. 5. The mitral valve shows no significant regurgitation. 6. Pulsed wave Doppler of mitral inflow shows reversal of the E/A ratio. The ratio is 0.7. 7. Tissue Doppler of septal and lateral mitral annulus averages 9 cm. There is no diastolic dysfunction. 8. The aortic valve shows a normal Doppler pattern. The valve opens normally. There is no stenosis. There is no regurgitation. 9. The pulmonic valve was not well visualized. 10.The tricuspid valve also was suboptimally visualized. I do not see a pericardial effusion. Clinical correlation recommended. If cardiac valvular pathology is suspected, consider doing a transesophageal echocardiogram. cc: MD Jose Rafael Richardson CRNP MTDD
[2019-03-04] MEDS: SOLU-MEDROL IV SCH (20:49)
[2019-03-04] MEDS: ROCEPHIN 1 GM in NS 50 ML IV SCH (20:49)
--- NOTE | 2019-03-04 21:24 | PROGRESS NOTE ---
DATE: 03/04/2019 SUBJECTIVE: Patient has no major complaints. OBJECTIVE: Vital signs: Blood pressure is 156/67, heart rate of 79, respiratory rate of 17, temperature 98.2 degrees, 97% on 2 L. Cardiovascular: Regular rate and rhythm. Pulmonary: Bilateral breath sounds, clear to auscultation. GI: Soft, nontender, nondistended. Bowel sounds are positive. LABORATORY DATA: White count 10, hemoglobin and hematocrit 12 and 40. I do not think there is any new data here, but on pulmonary exam, he definitely has rhonchi and wheezing. PROBLEM LIST: 1. Chronic obstructive pulmonary disease exacerbation with bronchitis. I do not think he has pneumonia, but he is pretty adamant about trying to get some antibiotics, but I do think he has chronic obstructive pulmonary disease exacerbation and would benefit from steroids, which I have increased his dose. 2. Mild congestive heart failure exacerbation. He did have chest pain. We will get Cardiology input. Echocardiogram is pending. 3. Thoracic fractures. We are going to try to get that taken care of. He may need some physical therapy. Continue to monitor very closely. cc: Wong Man MD
[2019-03-05] MEDS: DUONEB (A & A) INH SCH ×5 (03:42→23:30)
[2019-03-05] MEDS: MORPHINE IV PRN ×6 (03:52→22:22)
[2019-03-05] MEDS: PRILOSEC PO SCH (07:14)
[2019-03-05 07:33] LABS: HEMATOCRIT 37.8 % (42.0-52.0); HEMOGLOBIN 11.9 g/dL (14.0-18.0); IMM GRAN# 0.04 X1000 (0.0-0.04); IMM GRAN% 0.3 % (0.0-0.5); LYMPH# 0.65 X1000 (1.2-3.4); LYMPH% 5.3 % (20.5-51.1); MCH 30.1 PG (27-31); MCHC 31.5 g/dL (33-37); MCV 95.7 FL (81-99); MONO# 0.45 X1000 (0.11-0.59); MONO% 3.7 % (1.7-9.3); MPV 10.9 FL (7.4-10.4); NEUT# 11.02 X1000 (1.4-6.5); NEUT% 90.7 % (42.2-75.2); PLT 308 X1000 (130-400); RBC 3.95 XMIL (4.7-6.1); RDW 13.1 % (11.5-14.5); WBC 12.16 X1000 (4.8-10.8)
[2019-03-05 07:51] LABS: CREATININE 1.7 mg/dL (0.7-1.2); POTASSIUM 4.6 mmol/L (3.5-5.1)
[2019-03-05] MEDS: CELEXA PO SCH (08:38)
[2019-03-05] MEDS: PRAVACHOL PO SCH (08:38)
[2019-03-05] MEDS: PREDNISONE PO SCH (08:38)
[2019-03-05] MEDS: ASPIRIN EC PO SCH (08:38)
[2019-03-05] MEDS: LOVENOX SUBQ SCH (08:38)
[2019-03-05] MEDS: SOLU-MEDROL IV SCH ×2 (08:39→16:11)
[2019-03-05] MEDS: TYLENOL PO PRN ×2 (08:54→16:10)
[2019-03-05] MEDS ORDERED: LASIX PO SCH (09:00)
[2019-03-05 09:02] LABS: BANDS 2 % (0-1); LYMPHS 10 % (21-51); MONO 2 % (1-9); SEGS 86 % (42-75)
--- NOTE | 2019-03-05 15:29 | CARDIOLOGY CONSULTATION ---
DATE: 03/05/2019 CHIEF COMPLAINT ON PRESENTATION: Two separate forms of chest pain, one was a pleuritic discomfort, and another was a burning discomfort in the left frontal chest area. HISTORY OF PRESENT ILLNESS: Mr. Walker is a 73-year-old white male with a history of COPD on home oxygen. He has had a pleuritic discomfort in his chest for around 2 months. He says every time he bends over turns, coughs deeply, or takes a deep breath he gets severe pain in his chest. Again, this has been going on for more than 2 months. He has had anti-inflammatory treatments for this. Yesterday, he began having a different kind of discomfort in the left frontal chest area lasting for anywhere from 1 to 10 minutes. It was not exertional, was burning, and was in a point location in the left chest. He had no other associated symptoms with this. PAST MEDICAL HISTORY: 1. Significant for severe COPD. 2. Sleep apnea with intermittent compliance with CPAP therapy. 3. Hypertension. 4. Hyperlipidemia. 5. Obesity. SOCIAL HISTORY: Previous smoker apparently for more than 60 years. He is . No alcohol. FAMILY HISTORY: No early family history of coronary disease that he is aware. REVIEW OF SYSTEMS: A 10 system review of systems is negative except for those mentioned in HPI. PHYSICAL EXAMINATION: Vital Signs: The patient is afebrile. His heart rate is 87. His blood pressure is 145/72. General: He is in no acute distress. HEENT: Oropharynx is moist. Poor dentition. Eye examination is pink conjunctivae. White sclerae. Neck: Examination shows no obvious thyromegaly or thyroid tenderness. Cardiovascular: He sounds to be in a regular rate and rhythm. I do not hear any obvious murmurs. He has no S3. He has trace lower extremity edema. Chest: Exam has prominent bilateral end-expiratory wheezes. He has no increased work of breathing. Abdomen: Soft, nontender, and nondistended. He has no obvious organomegaly. Skin: Warm and dry throughout without any rashes. Neurological: He is moving all extremities well. He has no lateralizing deficits. PERTINENT DATA: His EKG shows sinus rhythm. He has no signs of ischemic changes or previous infarct. He had a chest CT performed showing chronic atelectasis or scarring in the lower lung zones. It is stable. He has acute or subacute compression fractures involving T11 and T10. He does have some coronary calcifications identified as well as aortic calcifications. His lab data demonstrates white count of 12.1, hematocrit is 37, and his platelet count is 308,000. He does have a slight bandemia. His platelet count is 308,000. Sodium is 140, potassium 4.6, BUN 30, and creatinine is 1.7 which appears relatively stable for him from old. He has negative cardiac enzymes. His proBNP was 33. His LDL is 155. HDL 48. ASSESSMENT: Mr. Walker is a 73-year-old gentleman with a history of severe COPD who presented with 2 separate forms of chest pain. PLAN: At this point, he appears to have a significant pleuritic component. Likely, he has a large amount of pain secondary to his compression fractures. I will defer further management of that to the primary team. In addition, he has a separate type of chest discomfort that seems somewhat atypical. His ejection fraction is normal based on recent echocardiogram, and he has a normal proBNP. I do not believe he has any component of heart failure presently. I would recommend myocardial perfusion imaging at some point in the future, but would not do so presently with a significant expiatory wheezes going on presently. For now, we will treat the patient medically. He is on 40 mg of pravastatin with an LDL of 150. I will discontinue this, and place him on high-dose atorvastatin considering his coronary calcifications that was identified on previous CT scanning. cc: Oj Priest MD
[2019-03-05] MEDS ORDERED: LACTULOSE PO ONE (16:10)
[2019-03-05] MEDS ORDERED: LACTULOSE PO PRN (16:10)
[2019-03-05] MEDS: LASIX IV SCH (16:11)
[2019-03-05] MEDS: MIRALAX PO SCH (16:54)
--- NOTE | 2019-03-05 16:59 | PROGRESS NOTE ---
DATE: 03/05/2019 SUBJECTIVE: The patient is still wheezing and short of breath. OBJECTIVE: Vital signs: Blood pressure 145/72, heart rate of 87, respiratory rate of 18, temperature is 97.9 degrees. Cardiovascular: Regular rate and rhythm. Pulmonary: Bilateral breath sounds, diminished at the bases. He had wheezing throughout. Gastrointestinal: Soft, nontender, nondistended. Bowel sounds are positive. LABORATORY DATA: White count 12, H and H 11 and 37, platelets 308,000. Creatinine 1.7. LDL was 155. PROBLEM LIST: 1. Chronic obstructive pulmonary disease exacerbation, bronchitis. We will continue antibiotics and breathing treatments. I am going to bump up his steroids because he is still wheezing. We have consulted Pulmonary to help evaluate him. He does see Dr. Voss. 2. Congestive heart failure versus cor pulmonale. He had chest pain, but he also has acute vertebral fractures. I have consulted cardiology they feel generally speaking this is noncardiac. I would recommend noninvasive nuclear imaging when he is more stable. Certainly with the wheezing and bronchospasm, a Lexiscan would not be beneficial at this moment. We could certainly try for dobutamine, but I think this could be done I agree with Dr. Priest on down the line. 3. Hyperlipidemia. He is not on appropriate anti-lipid based on current guidelines. I am going to also give him a bit of diuretic. We will monitor his renal dysfunction. Disposition pending clinical status, so he may be here a couple of days. 4. Acute to subacute T10-T11 compression fractures. I have ordered a brace. We are going to continue with pain control, and we will see how he does subsequently. cc: Wong Man MD
[2019-03-05] MEDS: ROCEPHIN 1 GM in NS 50 ML IV SCH (19:35)
[2019-03-05] MEDS: NORCO-10 PO PRN (22:21)
[2019-03-06] MEDS: SOLU-MEDROL IV SCH ×3 (00:28→16:23)
[2019-03-06] MEDS: LASIX IV SCH ×2 (04:12→16:24)
[2019-03-06] MEDS: NORCO-10 PO PRN ×4 (04:12→19:17)
[2019-03-06] MEDS: MORPHINE IV PRN ×3 (04:12→20:26)
[2019-03-06] MEDS: PRILOSEC PO SCH ×2 (04:14→06:20)
--- NOTE | 2019-03-06 05:31 | PULMONOLOGY CONSULTATION ---
DATE: 03/05/2019 REQUESTING PHYSICIAN: Dr. Man. REASON FOR CONSULTATION: COPD and cor pulmonale. HISTORY OF PRESENT ILLNESS: Mr. Walker is a 73-year-old with severe COPD who is well known to this practitioner. The patient has morbid obesity and has been unable to lose weight. He has been a nonsmoker for approximately 2 years. He has been encouraged to begin a pulmonary rehabilitation program which he has adamantly refused. He reports he has had significant "lung pain" for the last 4 to 6 weeks. He reports pain in his back that radiates around anteriorly with deep breath and movement. He reports he has had some weight gain. The patient reports he has a CPAP machine that he got off the Internet and it simply has settings 3 through 5. He presented to the emergency room with shortness of breath and chest pain. He underwent a CT scan of the thorax, which reveals new compression fractures of T10 and T11. PAST MEDICAL HISTORY: 1. Severe chronic obstructive pulmonary disease. 2. Morbid obesity with a BMI greater than 40. 3. Recurrent syncope. 4. Dyslipidemia. 5. Hypertension. 6. Diabetes mellitus. 7. Neuropathy. 8. Status post cataract removal. SOCIAL HISTORY: Prior tobacco use, as per above. He has performed some vaping in the past. No significant alcohol use. FAMILY HISTORY: Noncontributory to current presentation. REVIEW OF SYSTEMS: As noted in the HPI but is otherwise negative. PHYSICAL EXAMINATION: General: Reveals an obese white male with significant truncal obesity, resting comfortably in his bed. Vital signs: BP 138/58, heart rate 87, respiratory rate 12, oxygen saturation 96% on 3 L per nasal cannula. HEENT: Pupils are equal and reactive. Oropharynx is clear. Neck: Supple. Chest: Reveals prolonged expiratory phase with minimal wheezing on current medical regimen. Cardiac: Regular rate. Normal S1, normal S2. Abdomen: Obese and soft. Extremities: Reveal trace to 1+ peripheral edema. LABORATORIES: Sodium 140, potassium 4.6, chloride 100, bicarbonate 24, BUN 30, creatinine 1.7. White blood count 12.16, hemoglobin 11.9, platelet count 308,000. IMPRESSION: A 73-year-old with 1. Severe chronic obstructive pulmonary disease with mild wheezing at this point. He reports this has improved with current steroid dosing and treatment regimen. 2. Acute on chronic cor pulmonale. 3. Chronic hypoxemic respiratory failure. 4. Chest pain related to new compression fractures. 5. Presumptive sleep apnea. He currently is self medicating with a CPAP device he got off the Internet. 6. Noncompliance with recommended rehab regimens and dietary restrictions. RECOMMENDATIONS: 1. Continue current treatment regimen. 2. Continue gentle diuresis as you are doing. 3. Continue oxygen therapy. 4. Recommend outpatient sleep evaluation, which he has refused in the past and currently is refusing. 5. Long-term, the patient would benefit tremendously from weight loss. 6. Continue current bronchodilator and steroid regimen. cc: Obed Voss MD
[2019-03-06 07:52] LABS: HEMATOCRIT 38.3 % (42.0-52.0); HEMOGLOBIN 12.2 g/dL (14.0-18.0); IMM GRAN# 0.04 X1000 (0.0-0.04); IMM GRAN% 0.3 % (0.0-0.5); LYMPH# 0.54 X1000 (1.2-3.4); LYMPH% 4.6 % (20.5-51.1); MCH 30.3 PG (27-31); MCHC 31.9 g/dL (33-37); MCV 95.3 FL (81-99); MONO# 0.57 X1000 (0.11-0.59); MONO% 4.9 % (1.7-9.3); NEUT# 10.57 X1000 (1.4-6.5); NEUT% 90.2 % (42.2-75.2); PLT 286 X1000 (130-400); RBC 4.02 XMIL (4.7-6.1); RDW 13.2 % (11.5-14.5); WBC 11.72 X1000 (4.8-10.8)
[2019-03-06] MEDS: DUONEB (A & A) INH SCH ×5 (07:58→23:45)
[2019-03-06 08:09] LABS: CALCIUM 9.6 mg/dL (8.8-10.2); CREATININE 1.7 mg/dL (0.7-1.2); POTASSIUM 4.1 mmol/L (3.5-5.1)
[2019-03-06 08:38] LABS: BANDS 1 % (0-1); LYMPHS 4 % (21-51); MONO 4 % (1-9); SEGS 91 % (42-75)
[2019-03-06] MEDS: LOVENOX SUBQ SCH (08:57)
[2019-03-06] MEDS: MIRALAX PO SCH (08:57)
[2019-03-06] MEDS: ASPIRIN EC PO SCH (08:57)
[2019-03-06] MEDS: CELEXA PO SCH (08:57)
[2019-03-06] MEDS: NON-FORMULARY MED (Fluticasone/Umeclidin/Vilanter [Trelegy Ellipta 100-62.5-25] 1 PUFF) INH SCH (11:43)
--- NOTE | 2019-03-06 14:59 | PROGRESS NOTE ---
DATE: 03/06/2019 SUBJECTIVE: Patient reports breathing better in comparing with yesterday. Less wheezing and shortness of breath noted. OBJECTIVE: Vital Signs: Temperature 97.8 degrees, heart rate 73, respiratory rate 16, blood pressure 150/72, O2 saturation 97% on 3 liters nasal cannula. General examination: This is a chronically ill-appearing, morbidly obese, 73-year-old male, lying in bed in no acute distress. Cardiovascular exam: S1, S2 heard. No murmurs, gallops, or rubs. Regular rate and rhythm. Respiratory exam: Decreased breath sounds globally with wheezing all over both pulmonary bases. The patient is not using any accessory muscles or having work of breathing. Abdomen: Soft. Nontender to palpation. Bowel sounds present. No organomegaly. Extremities: 1+ pedal edema. No clubbing or cyanosis noted. Neurological examination: Patient alert and oriented x3. Moves 4 extremities. LABORATORY DATA: White cell count 11.72, hemoglobin 12.2, hematocrit 38.3 platelets 236 with BMP that reveals creatinine 1.7. ASSESSMENT AND PLAN: 1. Severe chronic obstructive pulmonary disease exacerbation. We will continue with breathing treatment and intravenous steroids. We will continue with the same management. 2. Congestive heart failure versus cor pulmonale. The patient most likely had acute on chronic cor pulmonale. The patient is having gentle diureses. We will continue with the same management. Dr. Voss from Pulmonary following this patient. 3. Chest pain most likely related to new compression fracture. We will continue to treat pain accordingly. 4. Obstructive sleep apnea. Patient will need to have sleep studies to document properly sleep apnea. Apparently, he has been using a CPAP device he got from the Internet. 5. Medical noncompliance. Patient is advised to be compliant with medication. No medications indicated by his primary doctor. 6. Hyperlipidemia. We will continue with home medications. 7. Acute to subacute T10-T12 compression fracture. We will continue to monitor. We will treat him with pain medication. The patient is supposed to use a brace as well. 8. Disposition: We will continue to monitor this patient closely. cc: Desmond Powell MD
[2019-03-06] MEDS: ROCEPHIN 1 GM in NS 50 ML IV SCH (20:27)
[2019-03-06] MEDS ORDERED: LIPITOR PO SCH (21:00)
--- NOTE | 2019-03-06 23:54 | CARDIOLOGY PROGRESS NOTE ---
DATE: 03/06/2019 SUBJECTIVE: Mr. Walker reports his symptoms are better as far as his pain goes. He is taking slightly deeper breaths. His breathing seems to have improved. OBJECTIVE: The patient is afebrile. Heart rate is primarily in the 70s to 80s. His most recent blood pressure is 149/71. Generally he is in no acute distress. Cardiovascular: He sounds to be in a regular rate and rhythm. He has no murmurs. He has minimal bilateral lower extremity edema. His chest exam has mild end-expiratory wheezes. They sound improved from yesterday. He has no increased work of breathing. His abdomen is soft, nontender. LABORATORY DATA: Sodium 141, potassium is 4.1, BUN 35, creatinine is 1.7. ASSESSMENT: Mr. Walker is a 73-year-old gentleman who presented with atypical chest pain as well as significant shortness of breath, back pain and pleuritic discomfort. PLAN: The back pain and pleuritic discomfort is likely coming from his compression fractures. His COPD exacerbation seems to be improved. At this point I would recommend followup as an outpatient, to consider outpatient stress testing in the future if necessary. At this point he seems stable from a cardiovascular standpoint. cc: Oj Priest MD
[2019-03-07] MEDS: SOLU-MEDROL IV SCH ×2 (00:20→08:03)
--- NOTE | 2019-03-07 02:27 | PULMONOLOGY PROGRESS NOTE ---
DATE: 03/06/2019 SUBJECTIVE: The patient is awake, alert, and conversant. He reports his breathing is improving. OBJECTIVE: Vital Signs: The patient has been afebrile for the last 24 hours. Blood pressure 139/69, heart rate 91, respiratory rate 18, oxygen saturation 98% on 3 L per nasal cannula. HEENT: Pupils are equal and reactive. Oropharynx appears clear. Neck: Supple. Chest: Reveals prolonged expiratory phase with minimal wheezing. Cardiac: S1-S2. Abdomen: Obese and soft. Extremities: Reveal 1+ peripheral edema. LABORATORIES: White blood count 11.72, hemoglobin 12.2, platelet count 286,000. Sodium 141, potassium 4.1, chloride 99, bicarbonate 28, BUN 35, creatinine 1.7. IMPRESSION: A 73-year-old with: 1. Severe chronic obstructive pulmonary disease. 2. Chronic obstructive pulmonary disease exacerbation. 3. Acute on chronic cor pulmonale. 4. Chronic hypoxemic respiratory failure. 5. Compression fractures with musculoskeletal pain. 6. Sleep apnea, which is presumptive he has not formally been studied. 7. Noncompliance with previous prescribed medical regimen. RECOMMENDATIONS: 1. Continue current bronchial bronchodilators. 2. Continue gentle diuresis. 3. Wean oxygen as tolerated. 4. Recommend outpatient sleep evaluation. 5. Recommend weight loss. cc: Obed Voss MD
[2019-03-07] MEDS: LASIX IV SCH (04:01)
[2019-03-07] MEDS: PRILOSEC PO SCH (06:23)
[2019-03-07] MEDS: MORPHINE IV PRN ×3 (06:23→13:51)
[2019-03-07] MEDS: DUONEB (A & A) INH SCH ×2 (07:56→11:30)
[2019-03-07] MEDS: LOVENOX SUBQ SCH (08:03)
[2019-03-07] MEDS: CELEXA PO SCH (08:03)
[2019-03-07] MEDS: ASPIRIN EC PO SCH (08:03)
[2019-03-07] MEDS: NORCO-10 PO PRN ×2 (08:03→15:07)
[2019-03-07] MEDS: MIRALAX PO SCH (08:04)
[2019-03-07] MEDS: NON-FORMULARY MED (Fluticasone/Umeclidin/Vilanter [Trelegy Ellipta 100-62.5-25] 1 PUFF) INH SCH (08:10)
[2019-03-07 14:44] VITALS: BP 148/78
--- NOTE | 2019-03-07 23:48 | PULMONOLOGY PROGRESS NOTE ---
DATE: 03/07/2019 SUBJECTIVE: The patient is awake, alert, and conversant. He reports good urine output over the last 24 hours. He reports his breathing is improving. OBJECTIVE: Vital Signs: The patient has been afebrile for the last 24 hours. Blood pressure 148/78, heart rate 80, respiratory rate 16, oxygen saturation 97%. HEENT: Pupils are equal and reactive. Oropharynx appears clear. Neck: Supple. Chest: Reveals prolonged expiratory phase with minimal wheezing. Cardiac: S1-S2. Abdomen: Obese and protuberant. Extremities: Reveal trace edema. LABORATORIES: No new chemistries or CBC today. No new sputum culture results. IMPRESSION: A 73-year-old with: 1. Severe chronic obstructive pulmonary disease. 2. Chronic obstructive pulmonary disease exacerbation. 3. Acute on chronic cor pulmonale. 4. Chronic hypoxemic respiratory failure. 5. Chest pain related to compression fractures. 6. Sleep apnea without formal evaluation. RECOMMENDATIONS: 1. Continue current bronchodilators. 2. Wean oxygen as tolerated. 3. Recommend scheduling patient for an outpatient evaluation. 4. Encourage weight loss. 5. Anticipate discharge today or tomorrow. The patient should call my office next week for a follow-up evaluation. cc: Obed Vsos MD
--- NOTE | 2019-03-08 20:24 | DISCHARGE SUMMARY ---
ADMISSION DATE: 03/04/2019 DISCHARGE DATE: 03/07/2019 DIAGNOSES: 1. Severe chronic obstructive pulmonary disease acute exacerbation. 2. Congestive heart failure versus cor pulmonale. 3. Chest pain, most likely related to new compression fracture. 4. Obstructive sleep apnea in a patient who is self-treating with a CPAP device he got from the Internet. 5. Medical noncompliance with medication and followup. 6. Hyperlipidemia. 7. Acute to subacute T10 through T12 compression fracture. CONSULTS: Dr. Oj Priest, Cardiology, Dr. Obed Voss, Pulmonology. DIAGNOSTICS: Chest x-ray revealed calcified granuloma in the left costophrenic angle and another in the right upper lobe. There may be COPD. There is diminished atelectasis in the lingula compared to 05/05/2018. Otherwise there has been no significant change. CT of the chest revealed stable chronic atelectasis and/or scarring in the lower lung zones bilaterally. No definite acute intrathoracic process, acute or subacute compression fractures involving T11 and T10 vertebral bodies. Echocardiogram revealed ejection fraction of 50 to 65 percent. No definite wall motion abnormality noted. No pericardial effusion. HOSPITAL COURSE: Mr. Walker was in the emergency room complaining of "lung pain" that for the previous 4 to 6 weeks. He reported in his back and it radiated anteriorly with deep breaths or movement. He was found to have new compression fractures of T10 and T11. The patient has a brace for this that he is to be wearing. The patient has a history of noncompliance. He has presumptive sleep apnea that he states that he diagnosed and he uses a CPAP device that he got off the Internet for this. He was evaluated by Dr. Voss while in the hospital. Dr. Voss did recommend that the patient follow up with him a week after discharge. He was evaluated by cardiology who recommended that the patient consider outpatient stress testing in the future if he chose to. He was treated for a COPD acute exacerbation with bronchodilators, supplemental oxygen. Thankfully this is resolved. While in the hospital he was diuresed for a negative cumulative total of 5 L and today he states that he is much better. DISCHARGE PHYSICAL EXAM: Vital Signs: Blood pressure is 148/78 with heart rate of 80, respirations 16, temperature 98.6 degrees oral, O2 saturations were 97 to 98 percent. Cardiovascular: Regular rate and rhythm. S1 and S2 appreciated. Calves are nontender bilateral, peripheral pulses palpable x4 extremities. Pulmonary: He does have prolonged expiratory phase with minimal scattered expiratory wheezes. Gastrointestinal: Abdomen soft, nontender, nondistended. Bowel sounds in all 4 quadrants. Neurologic: He is alert, oriented x3. DISCHARGE MEDICATIONS: 1. Celexa 40 mg p.o. daily. 2. Lasix 40 mg tablets 2 p.o. daily. 3. Pravachol 40 mg p.o. daily. 4. Prednisone 5 mg p.o. daily. 5. Trelegy Ellipta 100/62.5/25 one puff daily. 6. Atorvastatin 80 mg p.o. at bedtime. 7. Aspirin 81 mg p.o. daily. 8. DuoNeb q.4 hours as needed. 9. Lactulose 30 mL daily p.r.n. constipation. 10. Levaquin 750 mg p.o. daily for 10 days. 11. [place] 10/325 one q.4 hours p.r.n. a prescription for #45 pills with no refills given. 12. Ventolin inhaler q.6 hours p.r.n. wheezing. FOLLOWUP: 1. Dr. Obed Voss, he needs to call to schedule appointment within the next week. 2. Rodolfo Mckenna his primary care provider, he needs to call schedule appointment in next 1 to [address] Haney[address] He needs to call to schedule followup visit in 4 weeks for sleep studies. 4. Dr. Oj Priest needs to call schedule an appointment in the next 1 to 2 months. He has been instructed to call to be seen sooner or return to the ER for any syncope, dizziness, chest pain, palpitations, temperature greater than 101, any increasing shortness of breath, a productive cough, any nausea, vomiting, diarrhea, constipation, black or bloody vomitus or stools, hematuria, dysuria, frequency, urgency or for any questions or concerns that he may have. He is being discharged home in stable condition with family members. TIME SPENT: Greater than 30 minutes. Dictated by YULISSA Andrea for Desmond Powell MD Addendum: Patient seen and examined by myself. Agree with YULISSA note. It reflects my assessment and plan. Patient is being discharged in stable condition. Will be seen by Pulmonary and Cardiology as above. cc: YULISSA Andrea MD [facility]
== END 2019-03-07 15:32 | disposition home health service (06) | DRG 191 ==
LOC: ED 01:31 → SUATTDRO 07:27 → 3N 07:27
PROVIDERS: ATTEND Internal Medicine